=== PATIENT | male | born 1965 | race Caucasian/White ===

== ENCOUNTER 2017-11-13 15:03 | Emergency (ER) | payer OTHER ==
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
[2017-11-13] MEDS ORDERED: LISI-353 PO (15:13)
[2017-11-13 16:00] VITALS: BP 108/65
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
== END 2017-11-13 16:22 | disposition home or self-care (01) ==
LOC: ER 15:15
DX: S20.212A Contusion of left front wall of thorax, initial encounter (principal); V87.7XXA Person injured in collision between other specified motor vehicles (traffic), initial encounter
CPT/HCPCS: 71046; 71100; 99283

== ENCOUNTER → 2017-11-13 | Outpatient (CLI) | payer OTHER ==
[~2017-11-13] MED LIST: LISI-353 PO
== END ==
LOC: AMB 14:24
PROVIDERS: ATTEND Nurse Practitioner
DX: R07.81 Pleurodynia (principal); V69.40XA Driver of heavy transport vehicle injured in collision with unspecified motor vehicles in traffic accident, initial encounter; Y92.411 Interstate highway as the place of occurrence of the external cause
CPT/HCPCS: A0425; A0429